=== PATIENT | male | born 1965 | race Caucasian/White ===

== ENCOUNTER 2017-02-12 16:39 | Emergency (ER) | payer BC ==
[~2017-02-12] VITALS: Ht 177.8 cm; Wt 70.3 kg
[2017-02-12] MEDS ORDERED: LO-DOSE ASPIRIN81 M1 PO (16:49)
[2017-02-12] MEDS ORDERED: TRAZODONE (16:49)
[2017-02-12 17:00] LABS: ADD MIUA? YES; BILIRUBIN NEGATIVE; BLOOD LARGE; COLOR YELLOW ((YELLOW)); GLUCOSE (STRIP) NEGATIVE; KETONES NEGATIVE; LEUKOCYTES NEGATIVE; NITRITE NEGATIVE; PROTEIN (STRIP) 30; SPECIFIC GRAVITY 1.006 (1.000-1.030); UROBILINOGEN 0.2 MG/DL (0.2-1.0)
[2017-02-12 17:01] LABS: EOSINOPHIL (%) 2.5 % (0-5); EOSINOPHIL COUNT 0.1 K/uL (0-0.3); HEMATOCRIT 43.8 % (38.0-50.0); IMMATURE GRANULOCYTE (%) 0.2 % (0.0-0.7); INSTRUMENT ABS NEUTROPHIL CT 3.2 K/uL; LYMPHOCYTE COUNT 1.3 K/uL (1.0-2.8); MCH 30.8 PG (29.0-34.0); MCHC 34.2 G/DL (30.0-36.0); MCV 89.9 FL (86-99); MEAN PLAT.VOLUME 9.5 uM^3 (9.0-12.4); MONOCYTE (%) 9.6 % (3-12); MONOCYTE COUNT 0.5 K/uL (0-0.8); NEUTROPHIL (%) 62.5 % (45-76); NEUTROPHIL COUNT 3.2 K/uL (1.8-6.4); PLATELET COUNT 276 K/uL (156-360); RBC DIS.WIDTH-CV 12.4 % (11.8-14.6); RBC DIS.WIDTH-SD 41.3 % (39-53); RED BLOOD COUNT 4.87 M/uL (4.00-5.50); WHITE BLOOD COUNT 5.1 K/uL (4.1-10.2)
[2017-02-12 17:12] LABS: CHLORIDE 103 mEq/L (99-109); POTASSIUM 4.5 mEq/L (3.7-5.4); SODIUM 140 mEq/L (136-147)
[2017-02-12 17:12] LABS: BACTERIA 1+ /HPF; EPITHELIAL CELLS NONE SEEN /HPF; MUCUS TRACE /LPF; RED BLOOD CELLS TNTC /HPF (0-5)
[2017-02-12 17:13] LABS: GLUCOSE 107 mg/dL (70-99)
[2017-02-12 17:15] LABS: ANION GAP 9 MEQ/L (2-14)
[2017-02-12 17:18] LABS: GFR ESTIMATE (CALCULATED) > 59 mL/min/; UREA NITROGEN (BUN) 14 mg/dL (9-23)
[2017-02-12] MEDS ORDERED: LEVAQUIN500 MG PO (17:29)
[2017-02-12 17:37] VITALS: BP 125/91
== END 2017-02-12 17:38 | disposition home or self-care (01) ==
LOC: EME 16:39
PROVIDERS: Physician Assistant
DX: N30.01 Acute cystitis with hematuria (principal); Z79.82 Long term (current) use of aspirin
CPT/HCPCS: 80048; 81003; 85025; 87086; 99281; 99284